=== PATIENT | female | born 1940 | race Caucasian/White ===

== ENCOUNTER 2017-05-03 07:50 | Day surgery (SDC) | payer MEDICARE ==
[2017-05-03 08:43] VITALS: BMI 27.1
[2017-05-03] MEDS ORDERED: Lactated Ringer's 500 ML IV ONE (08:48)
[2017-05-03] MEDS ORDERED: Propofol 10 mg/ml Inj (20 ML) ONE (10:13)
[2017-05-03 10:44] VITALS: RESP 16
[2017-05-03 13:18] VITALS: BP 118/58; PULSE 61; TEMP 97; O2SAT 100
== END 2017-05-03 11:10 | disposition home or self-care (01) ==
LOC: H.ENDO 07:50
PROVIDERS: ATTEND Internal Medicine Gastroenterology
DX: Z12.11 Encounter for screening for malignant neoplasm of colon (principal); K57.30 Diverticulosis of large intestine without perforation or abscess without bleeding; K64.8 Other hemorrhoids
CPT/HCPCS: 45378; J2704; J7120